=== PATIENT | male | born 1985 | race Caucasian/White ===

== ENCOUNTER 2020-10-11 03:06 | Inpatient (IN) | payer SELFPAY ==
[~2020-10-11] VITALS: Ht 182.9 cm; Wt 60.8 kg
[~2020-10-11 03:06] MED LIST: PENTASA500 MG PO; ULTRAM 50MG50 MG PO
[2020-10-11] MEDS ORDERED: MORPHINE SULFATE INJ 2 MG/ML SYR IV STA (03:16)
[2020-10-11] MEDS ORDERED: ONDANSETRON HCL INJ 2MG/ML 2ML 2 MG/ML VIAL IV STA (03:16)
[2020-10-11 03:27] LABS: BASOPHILS # (AUTO) 0.1 (0.0-0.1); BASOPHILS % 0.5 % (0.0-1.0); EOSINOPHILS % 0.2 % (0.0-6.0); HEMATOCRIT 45.8 % (38.2-49.6); HEMOGLOBIN 15.1 g/dL (14.0-18.0); LYMPHOCYTES # (AUTO) 1.2 (1.0-3.2); LYMPHOCYTES % 11.4 % (18.0-39.1); MONOCYTES # (AUTO) 0.3 (0.2-0.8); MONOCYTES % 3.2 % (4.4-11.3); NEUTROPHILS % 84.4 % (38.7-80.0); PLATELET COUNT 263 x10e3/uL (140-360); RED BLOOD COUNT 5.39 x10e6/uL (4.3-5.7); RED CELL DISTRIBUTION WIDTH 13.2 % (11.7-14.4)
[2020-10-11] MEDS ORDERED: SODIUM CHLORIDE 0.9% 1000ML 1,000 ML ONE (03:29)
[2020-10-11] MEDS ORDERED: SODIUM CHLORIDE 0.9% 1000ML 1,000 ML IV ONE (03:30)
[2020-10-11 03:44] LABS: ALANINE AMINOTRANSFERASE 15 IU/L (0-55); ALBUMIN 4.6 g/dL (3.5-5.0); ALBUMIN/GLOBULIN RATIO 1.4 (0.8-2.0); ALKALINE PHOSPHATASE 68 IU/L (40-150); ANION GAP 14.1 mmol/L (8-16); BLOOD UREA NITROGEN 6 mg/dL (7-26); BUN/CREATININE RATIO 6 (6-25); CALCIUM 9.7 mg/dL (8.4-10.2); CARBON DIOXIDE 25 mmol/L (22-29); CHLORIDE 104 mmol/L (98-107); CREATININE, SERUM 0.99 mg/dL (0.72-1.25); EST GLOMERULAR FILTRATION RATE > 60 ML/MIN (60-); GLUCOSE 107 mg/dL (74-118); POTASSIUM 4.1 mmol/L (3.5-5.1); SODIUM 139 mmol/L (136-145)
[2020-10-11 03:45] LABS: AMYLASE 63 U/L (25-125); LIPASE 17 U/L (8-78)
[2020-10-11 03:47] LABS: CLARITY,URINE CLEAR (CLEAR); COLOR,URINE YELLOW (YELLOW); KETONES,URINE TRACE (NEGATIVE); LEUKOCYTE ESTERASE ,URINE NEGATIVE (NEGATIVE); NITRITE,URINE NEGATIVE (NEGATIVE); PROTEIN,URINE DIPSTICK NEGATIVE (NEGATIVE); URINE UROBILINOGEN 0.2 mg/dL (0.2 - 1)
[2020-10-11 04:10] LABS: BACTERIA,URINE RARE /HPF; EPITHELIAL CELLS,URINE RARE /LPF; RBC,URINE 0-5 /HPF (0-5); WBC,URINE (MAN) 0-5 /HPF (0-5)
[2020-10-11] MEDS ORDERED: SODIUM CHLORIDE 0.9% 50ML 50 ML ONE (05:03)
[2020-10-11] MEDS ORDERED: IOPAMIDOL 370 MG/ML 200 ML INFUS..BTL INJ ONE (05:03)
[2020-10-11] MEDS ORDERED: METHYLPREDNISOLONE SOD SUCC 125 MG/2ML VIAL IV STA (07:09)
[2020-10-11] MEDS ORDERED: ONDANSETRON HCL INJ 2MG/ML 2ML 2 MG/ML VIAL IV PRN (07:15)
[2020-10-11] MEDS ORDERED: MORPHINE SULFATE INJ 4 MG/ML INJ 1ML IV PRN (07:15)
[2020-10-11] MEDS ORDERED: BENZOCAINE/TETRACAINE/BUTAMBEN AERO SPRAY 56 GM CAN TOP ONE (07:15)
[2020-10-11] MEDS: SODIUM CHLORIDE 0.9% 1000ML 1,000 ML IV SCH ×2 (07:22→19:00)
[2020-10-11] MEDS ORDERED: HYDRALAZINE HCL 20 MG/ML VIAL IV PRN (17:15)
[2020-10-11] MEDS ORDERED: ACETAMINOPHEN 650 MG SUPP PR PRN (17:15)
[2020-10-12] MEDS: SODIUM CHLORIDE 0.9% 1000ML 1,000 ML IV SCH ×4 (01:12→16:56)
[2020-10-12 06:24] LABS: BASOPHILS % 0.5 % (0.0-1.0); EOSINOPHILS # (AUTO) 0.1 (0.0-0.4); HEMATOCRIT 38.1 % (38.2-49.6); HEMOGLOBIN 12.6 g/dL (14.0-18.0); LYMPHOCYTES # (AUTO) 2.3 (1.0-3.2); LYMPHOCYTES % 36.1 % (18.0-39.1); MEAN CORPUSCULAR HEMOGLOBIN 28.8 pg (28-32); MEAN CORPUSCULAR HGB CONC 33.1 g/dL (31-35); MEAN CORPUSCULAR VOLUME 87.2 fL (81-99); MONOCYTES # (AUTO) 0.6 (0.2-0.8); MONOCYTES % 10.1 % (4.4-11.3); NEUTROPHILS # (AUTO) 3.3 (2.1-6.9); NEUTROPHILS % 52.1 % (38.7-80.0); PLATELET COUNT 205 x10e3/uL (140-360); RED BLOOD COUNT 4.37 x10e6/uL (4.3-5.7); RED CELL DISTRIBUTION WIDTH 13.4 % (11.7-14.4)
[2020-10-12 06:46] LABS: ALANINE AMINOTRANSFERASE 11 IU/L (0-55); ALBUMIN 3.4 g/dL (3.5-5.0); ALBUMIN/GLOBULIN RATIO 1.4 (0.8-2.0); ALKALINE PHOSPHATASE 51 IU/L (40-150); ANION GAP 9.7 mmol/L (8-16); CALCIUM 8.4 mg/dL (8.4-10.2); CARBON DIOXIDE 25 mmol/L (22-29); CHLORIDE 106 mmol/L (98-107); CREATININE, SERUM 0.76 mg/dL (0.72-1.25); EST GLOMERULAR FILTRATION RATE > 60 ML/MIN (60-); GLUCOSE 87 mg/dL (74-118); POTASSIUM 3.7 mmol/L (3.5-5.1); SODIUM 137 mmol/L (136-145)
[2020-10-12 06:58] LABS: BLOOD UREA NITROGEN 9 mg/dL (7-26); BUN/CREATININE RATIO 12 (6-25)
[2020-10-12 07:10] LABS: PHOSPHORUS 3.4 MG/DL (2.3-4.7)
[2020-10-12] MEDS ORDERED: FAMOTIDINE 20 MG/2 ML VIAL IV SCH (09:00)
[2020-10-12] MEDS ORDERED: HUMIRA PEN40 MG/0.8 (09:56)
[2020-10-12 15:47] VITALS: BP 110/72
[2020-10-12 15:48] VITALS: BP 110/72
[2020-10-12 16:00] VITALS: BP 110/72
[2020-10-12 20:00] VITALS: BP 100/79
[2020-10-12] MEDS ORDERED: ACETAMINOPHEN 325 MG TAB PO PRN (20:00)
[2020-10-12 20:23] VITALS: BP 100/79
[2020-10-12] MEDS: FAMOTIDINE 20 MG/2 ML VIAL IV SCH (20:53)
[2020-10-13] VITALS: BP 100/58
[2020-10-13] MEDS: SODIUM CHLORIDE 0.9% 1000ML 1,000 ML IV SCH ×2 (00:33→08:04)
[2020-10-13 04:00] VITALS: BP 100/64
[2020-10-13] MEDS: FAMOTIDINE 20 MG/2 ML VIAL IV SCH (08:04)
[2020-10-13 08:05] VITALS: BP 106/72
[2020-10-13 08:50] VITALS: BP 106/72
[2020-10-13 08:51] VITALS: BP 142/68
[2020-10-13 12:14] VITALS: BP 106/72
== END 2020-10-13 17:15 | disposition home or self-care (01) | DRG 387 ==
LOC: ER 03:15 → ERHOLD 07:08 → MED/SURG 10-12 16:05
PROVIDERS: ADMIT Internal Medicine; ATTEND Internal Medicine
DX: K50.012 Crohn's disease of small intestine with intestinal obstruction (principal); D72.829 Elevated white blood cell count, unspecified; Z20.822 Contact with and (suspected) exposure to COVID-19; Z90.49 Acquired absence of other specified parts of digestive tract; Z82.49 Family history of ischemic heart disease and other diseases of the circulatory system; Z83.79 Family history of other diseases of the digestive system; Z88.8 Allergy status to other drugs, medicaments and biological substances
CPT/HCPCS: 36415; 74177; 80053; 81001; 82150; 83690; 83735; 84100; 85025; 99284; J2270; J2405; J2930; J7030; Q9967; U0002

== ENCOUNTER 2021-05-23 02:25 | Inpatient (IN) | payer SELFPAY ==
[2021-05-23] VITALS (8 sets, daily range): BP systolic 99–118; BP diastolic 63–79
[~2021-05-23] VITALS: Ht 182.9 cm; Wt 56.7 kg
[~2021-05-23 02:25] MED LIST changes: +HUMIRA PEN40 MG/0.8
[2021-05-23] MEDS ORDERED: MORPHINE SULFATE INJ 4 MG/ML INJ 1ML IV STA (02:32)
[2021-05-23] MEDS ORDERED: ONDANSETRON HCL INJ 2MG/ML 2ML 2 MG/ML VIAL IV STA (02:32)
[2021-05-23] MEDS ORDERED: SODIUM CHLORIDE 0.9% 1000ML 1,000 ML IV ONE (02:45)
[2021-05-23 02:58] LABS: BASOPHILS # (AUTO) 0.1 (0.0-0.1); BASOPHILS % 0.5 % (0.0-1.0); EOSINOPHILS # (AUTO) 0.1 (0.0-0.4); EOSINOPHILS % 0.5 % (0.0-6.0); HEMOGLOBIN 15.5 g/dL (14.0-18.0); LYMPHOCYTES # (AUTO) 1.7 (1.0-3.2); LYMPHOCYTES % 12.6 % (18.0-39.1); MEAN CORPUSCULAR HEMOGLOBIN 28.2 pg (28-32); MEAN CORPUSCULAR VOLUME 85.5 fL (81-99); MONOCYTES # (AUTO) 0.7 (0.2-0.8); MONOCYTES % 5.3 % (4.4-11.3); NEUTROPHILS # (AUTO) 10.7 (2.1-6.9); NEUTROPHILS % 80.6 % (38.7-80.0); PLATELET COUNT 319 x10e3/uL (140-360); RED CELL DISTRIBUTION WIDTH 14.3 % (11.7-14.4)
[2021-05-23 03:16] LABS: AMYLASE 68 U/L (25-125); LIPASE 17 U/L (8-78)
[2021-05-23 03:18] LABS: ALBUMIN 4.5 g/dL (3.5-5.0); ALBUMIN/GLOBULIN RATIO 1.2 (0.8-2.0); ANION GAP 16.7 mmol/L (8-16); CALCIUM 10.4 mg/dL (8.4-10.2); CREATININE, SERUM 1.01 mg/dL (0.72-1.25); POTASSIUM 3.7 mmol/L (3.5-5.1)
[2021-05-23 03:19] LABS: CLARITY,URINE CLEAR (CLEAR); COLOR,URINE AMBER (YELLOW); KETONES,URINE 2+ (NEGATIVE); LEUKOCYTE ESTERASE ,URINE NEGATIVE (NEGATIVE); NITRITE,URINE NEGATIVE (NEGATIVE); PROTEIN,URINE DIPSTICK 1+ (NEGATIVE); URINE UROBILINOGEN 0.2 mg/dL (0.2 - 1)
[2021-05-23 03:21] LABS: AMPHETAMINES SCREEN,URINE NEGATIVE (NEGATIVE); BENZODIAZEPINES SCREEN,URINE NEGATIVE (NEGATIVE); PHENCYCLIDINE SCREEN,URINE NEGATIVE (NEGATIVE)
[2021-05-23 03:27] LABS: BACTERIA,URINE FEW /HPF; EPITHELIAL CELLS,URINE RARE /LPF; MUCUS,URINE FEW (RARE); RBC,URINE 0-5 /HPF (0-5); WBC,URINE (MAN) 0-5 /HPF (0-5)
[2021-05-23] MEDS ORDERED: PIPERACILLIN/TAZOBACTAM 3.375 GM VIAL ONE (04:50)
[2021-05-23] MEDS: PIPERACILLIN/TAZOBACTAM 3.375 GM in SODIUM CHLORIDE 0.9% 50ML 50 ML IV SCH ×4 (04:51→23:55)
[2021-05-23] MEDS ORDERED: IOPAMIDOL 370 MG/ML 200 ML INFUS..BTL INJ ONE (05:20)
[2021-05-23] MEDS ORDERED: SODIUM CHLORIDE 0.9% 50ML 50 ML ONE (05:20)
[2021-05-23] MEDS: SODIUM CHLORIDE 0.9% 1000ML 1,000 ML IV SCH ×3 (05:24→21:40)
[2021-05-23] MEDS: MORPHINE SULFATE INJ 4 MG/ML INJ 1ML IV PRN ×3 (09:23→18:52)
[2021-05-23] MEDS: ONDANSETRON HCL INJ 2MG/ML 2ML 2 MG/ML VIAL IV PRN ×3 (09:23→18:52)
[2021-05-23] MEDS: METOCLOPRAMIDE HCL 10 MG/2ML VIAL IV SCH (23:51)
[2021-05-23] MEDS: METRONIDAZOLE 500MG/NS 100ML 100 ML IV SCH (23:51)
[2021-05-23] MEDS: METHYLPREDNISOLONE SOD SUCC 40 MG/ML VIAL 1ML IV SCH (23:51)
[2021-05-24] VITALS (8 sets, daily range): BP systolic 97–109; BP diastolic 55–74
[2021-05-24] MEDS: MORPHINE SULFATE INJ 4 MG/ML INJ 1ML IV PRN (00:08)
[2021-05-24] MEDS: SODIUM CHLORIDE 0.9% 1000ML 1,000 ML IV SCH ×3 (04:57→20:58)
[2021-05-24 05:03] LABS: BASOPHILS % 0.2 % (0.0-1.0); HEMATOCRIT 40.2 % (38.2-49.6); HEMOGLOBIN 12.8 g/dL (14.0-18.0); LYMPHOCYTES # (AUTO) 0.6 (1.0-3.2); LYMPHOCYTES % 6.9 % (18.0-39.1); MEAN CORPUSCULAR HEMOGLOBIN 27.9 pg (28-32); MEAN CORPUSCULAR HGB CONC 31.8 g/dL (31-35); MEAN CORPUSCULAR VOLUME 87.6 fL (81-99); MONOCYTES # (AUTO) 0.1 (0.2-0.8); MONOCYTES % 1.3 % (4.4-11.3); NEUTROPHILS # (AUTO) 8.2 (2.1-6.9); NEUTROPHILS % 91.3 % (38.7-80.0); PLATELET COUNT 246 x10e3/uL (140-360); RED BLOOD COUNT 4.59 x10e6/uL (4.3-5.7); RED CELL DISTRIBUTION WIDTH 14.6 % (11.7-14.4)
[2021-05-24 05:28] LABS: ALBUMIN 3.4 g/dL (3.5-5.0); ALBUMIN/GLOBULIN RATIO 1.2 (0.8-2.0); ANION GAP 14.9 mmol/L (8-16); CALCIUM 8.6 mg/dL (8.4-10.2); CREATININE, SERUM 0.89 mg/dL (0.72-1.25); POTASSIUM 3.9 mmol/L (3.5-5.1)
[2021-05-24] MEDS: PIPERACILLIN/TAZOBACTAM 3.375 GM in SODIUM CHLORIDE 0.9% 50ML 50 ML IV SCH ×4 (05:42→23:20)
[2021-05-24] MEDS: METHYLPREDNISOLONE SOD SUCC 40 MG/ML VIAL 1ML IV SCH ×4 (06:27→23:20)
[2021-05-24] MEDS: METRONIDAZOLE 500MG/NS 100ML 100 ML IV SCH ×3 (06:27→17:04)
[2021-05-24] MEDS: METOCLOPRAMIDE HCL 10 MG/2ML VIAL IV SCH ×4 (06:27→23:20)
[2021-05-25] VITALS (8 sets, daily range): BP systolic 102–121; BP diastolic 64–78
[2021-05-25] MEDS: METRONIDAZOLE 500MG/NS 100ML 100 ML IV SCH ×4 (00:11→19:09)
[2021-05-25] MEDS: METOCLOPRAMIDE HCL 10 MG/2ML VIAL IV SCH ×4 (06:08→23:36)
[2021-05-25] MEDS: SODIUM CHLORIDE 0.9% 1000ML 1,000 ML IV SCH ×3 (06:08→21:50)
[2021-05-25] MEDS: METHYLPREDNISOLONE SOD SUCC 40 MG/ML VIAL 1ML IV SCH ×4 (06:08→23:36)
[2021-05-25] MEDS: PIPERACILLIN/TAZOBACTAM 3.375 GM in SODIUM CHLORIDE 0.9% 50ML 50 ML IV SCH ×4 (06:08→23:36)
[2021-05-26] MEDS: METRONIDAZOLE 500MG/NS 100ML 100 ML IV SCH ×2 (00:18→06:29)
[2021-05-26] MEDS ORDERED: ACETAMINOPHEN 325 MG/10 ML UDC PO PRN (01:00)
[2021-05-26 01:46] VITALS: BP 125/88
[2021-05-26] MEDS ORDERED: ZOFRAN4 MG PO (04:29)
[2021-05-26] MEDS ORDERED: PANTOPRAZOLE SO40 MG PO (04:29)
[2021-05-26] MEDS ORDERED: PREDNISONE20 MG PO (04:29)
[2021-05-26] MEDS ORDERED: FLAGYL500 MG PO (04:31)
[2021-05-26] MEDS: SODIUM CHLORIDE 0.9% 1000ML 1,000 ML IV SCH (04:40)
[2021-05-26 05:24] VITALS: BP 117/77
[2021-05-26] MEDS: METOCLOPRAMIDE HCL 10 MG/2ML VIAL IV SCH (05:51)
[2021-05-26] MEDS: METHYLPREDNISOLONE SOD SUCC 40 MG/ML VIAL 1ML IV SCH (05:52)
[2021-05-26] MEDS: PIPERACILLIN/TAZOBACTAM 3.375 GM in SODIUM CHLORIDE 0.9% 50ML 50 ML IV SCH (05:52)
[2021-05-26 07:45] VITALS: BP 115/79
[2021-05-26 09:00] VITALS: BP 115/79
== END 2021-05-26 09:23 | disposition home or self-care (01) | DRG 385 ==
LOC: ER 02:33 → ERHOLD 04:54 → MED/SURG2 06:35
PROVIDERS: ADMIT Internal Medicine; ATTEND Internal Medicine
DX: K50.912 Crohn's disease, unspecified, with intestinal obstruction (principal); E43 Unspecified severe protein-calorie malnutrition; Z68.1 Body mass index [BMI] 19.9 or less, adult; K82.8 Other specified diseases of gallbladder; Z88.8 Allergy status to other drugs, medicaments and biological substances; Z90.49 Acquired absence of other specified parts of digestive tract; K50.913 Crohn's disease, unspecified, with fistula; R91.1 Solitary pulmonary nodule; Z20.822 Contact with and (suspected) exposure to COVID-19
CPT/HCPCS: 36415; 74019; 74177; 80053; 80307; 81001; 82150; 83690; 85025; 85651; 86140; 96361; 99284; J2270; J2405; J2543; J2765; J2920; J7030; Q9967; U0002

== ENCOUNTER 2021-11-29 19:32 | Inpatient (IN) | payer SELFPAY ==
[~2021-11-29] VITALS: Ht 182.9 cm; Wt 61.7 kg
[~2021-11-29 19:32] MED LIST changes: +FLAGYL500 MG PO; +PANTOPRAZOLE SO40 MG PO; +PREDNISONE20 MG PO; +ZOFRAN4 MG PO
[2021-11-29] MEDS ORDERED: ONDANSETRON HCL INJ 2MG/ML 2ML 2 MG/ML VIAL IV STA (19:47)
[2021-11-29] MEDS ORDERED: KETOROLAC TROMETHAMINE 30 MG/ML VIAL IV STA (19:47)
[2021-11-29 19:56] LABS: BASOPHILS # (AUTO) 0.1 (0.0-0.1); BASOPHILS % 0.5 % (0.0-1.0); EOSINOPHILS # (AUTO) 0.1 (0.0-0.4); EOSINOPHILS % 0.8 % (0.0-6.0); HEMATOCRIT 46.7 % (38.2-49.6); HEMOGLOBIN 15.6 g/dL (14.0-18.0); LYMPHOCYTES # (AUTO) 1.7 (1.0-3.2); LYMPHOCYTES % 15.2 % (18.0-39.1); MEAN CORPUSCULAR HEMOGLOBIN 28.1 pg (28-32); MEAN CORPUSCULAR HGB CONC 33.4 g/dL (31-35); MONOCYTES # (AUTO) 0.6 (0.2-0.8); MONOCYTES % 5.7 % (4.4-11.3); NEUTROPHILS # (AUTO) 8.5 (2.1-6.9); NEUTROPHILS % 77.5 % (38.7-80.0); PLATELET COUNT 302 x10e3/uL (140-360); RED BLOOD COUNT 5.56 x10e6/uL (4.3-5.7); RED CELL DISTRIBUTION WIDTH 13.4 % (11.7-14.4)
[2021-11-29] MEDS ORDERED: KETOROLAC TROMETHAMINE 60 MG/2 ML VIAL IM ONE (20:00)
[2021-11-29] MEDS ORDERED: SODIUM CHLORIDE 0.9% 1000ML 1,000 ML IV ONE (20:00)
[2021-11-29 20:18] LABS: ALBUMIN 4.3 g/dL (3.5-5.0); ALBUMIN/GLOBULIN RATIO 1.2 (0.8-2.0); AMYLASE 63 U/L (25-125); ANION GAP 13.9 mmol/L (8-16); CALCIUM 9.6 mg/dL (8.4-10.2); CREATININE, SERUM 0.84 mg/dL (0.72-1.25); LIPASE 17 U/L (8-78); POTASSIUM 3.9 mmol/L (3.5-5.1)
[2021-11-29] MEDS ORDERED: Morphine 4mg Syringe 4 MG/ML INJ IV PRN (22:15)
[2021-11-29] MEDS ORDERED: ONDANSETRON HCL INJ 2MG/ML 2ML 2 MG/ML VIAL IV PRN (22:15)
[2021-11-29 22:16] LABS: CLARITY,URINE CLEAR (CLEAR); COLOR,URINE YELLOW (YELLOW); KETONES,URINE 1+ (NEGATIVE); LEUKOCYTE ESTERASE ,URINE NEGATIVE (NEGATIVE); NITRITE,URINE NEGATIVE (NEGATIVE); PROTEIN,URINE DIPSTICK NEGATIVE (NEGATIVE); URINE UROBILINOGEN 0.2 mg/dL (0.2 - 1)
[2021-11-29] MEDS ORDERED: SODIUM CHLORIDE 0.9% 50ML 50 ML ONE ×2 (22:19→23:01)
[2021-11-29] MEDS ORDERED: PIPERACILLIN/TAZOBACTAM 3.375 GM VIAL ONE (22:19)
[2021-11-29 22:21] LABS: BACTERIA,URINE FEW /HPF; EPITHELIAL CELLS,URINE RARE /LPF; WBC,URINE (MAN) 0-5 /HPF (0-5)
[2021-11-29] MEDS ORDERED: PIPERACILLIN/TAZOBACTAM 3.375 GM in SODIUM CHLORIDE 0.9% 50ML 50 ML IV SCH (22:27)
[2021-11-29] MEDS: SODIUM CHLORIDE 0.9% 1000ML 1,000 ML IV SCH (22:30)
[2021-11-29] MEDS ORDERED: BENZOCAINE 20% SPR 60 ML CAN MT ONE (23:00)
[2021-11-29] MEDS ORDERED: IOPAMIDOL 370 MG/ML 100 ML INFUS..BTL INJ ONE (23:01)
[2021-11-29] MEDS ORDERED: BENZOCAINE/TETRACAINE/BUTAMBEN AERO SPRAY 56 GM CAN ONE (23:12)
[2021-11-29 23:20] VITALS: BP 120/75
[2021-11-29 23:37] VITALS: BP 120/75
[2021-11-30] MEDS ORDERED: ACETAMINOPHEN 325 MG TAB PO PRN (00:15)
[2021-11-30] MEDS ORDERED: METHYLPREDNISOLONE SOD SUCC 40 MG/ML VIAL 1ML IV ONE (00:15)
[2021-11-30] MEDS ORDERED: ACETAMINOPHEN 1000 MG/100 ML IV STA (00:24)
[2021-11-30] MEDS: PIPERACILLIN/TAZOBACTAM 3.375 GM in SODIUM CHLORIDE 0.9% 50ML 50 ML IV SCH ×4 (01:04→21:18)
[2021-11-30] MEDS: METRONIDAZOLE 500MG/NS 100ML 100 ML IV SCH ×4 (01:30→18:02)
[2021-11-30 04:51] VITALS: BP 109/70
[2021-11-30 04:59] LABS: BASOPHILS % 0.2 % (0.0-1.0); EOSINOPHILS % 0.1 % (0.0-6.0); HEMATOCRIT 42.6 % (38.2-49.6); HEMOGLOBIN 13.9 g/dL (14.0-18.0); LYMPHOCYTES # (AUTO) 0.8 (1.0-3.2); LYMPHOCYTES % 7.4 % (18.0-39.1); MEAN CORPUSCULAR HEMOGLOBIN 27.7 pg (28-32); MEAN CORPUSCULAR HGB CONC 32.6 g/dL (31-35); MEAN CORPUSCULAR VOLUME 84.9 fL (81-99); MONOCYTES # (AUTO) 0.1 (0.2-0.8); MONOCYTES % 0.8 % (4.4-11.3); NEUTROPHILS # (AUTO) 10.3 (2.1-6.9); NEUTROPHILS % 91.1 % (38.7-80.0); PLATELET COUNT 260 x10e3/uL (140-360); RED BLOOD COUNT 5.02 x10e6/uL (4.3-5.7); RED CELL DISTRIBUTION WIDTH 13.5 % (11.7-14.4)
[2021-11-30 05:17] LABS: ALBUMIN 3.7 g/dL (3.5-5.0); ALBUMIN/GLOBULIN RATIO 1.2 (0.8-2.0); ANION GAP 10.9 mmol/L (8-16); CALCIUM 8.7 mg/dL (8.4-10.2); CREATININE, SERUM 0.94 mg/dL (0.72-1.25); POTASSIUM 3.9 mmol/L (3.5-5.1)
[2021-11-30] MEDS ORDERED: PIPERACILLIN/TAZOBACTAM 3.375 GM in SODIUM CHLORIDE 0.9% 50ML 50 ML IV SCH (06:00)
[2021-11-30] MEDS: METHYLPREDNISOLONE SOD SUCC 40 MG/ML VIAL 1ML IV SCH ×3 (06:06→18:02)
[2021-11-30 07:56] VITALS: BP 95/64
[2021-11-30 08:01] VITALS: BP 95/64
[2021-11-30] MEDS ORDERED: CHLORASEPTIC SPRAY 177 ML BTL MM PRN (11:00)
[2021-11-30 12:20] VITALS: BP_SYST 100; BP_SYST 134; BP_DIAS 106; BP_DIAS 65
[2021-11-30] MEDS: SODIUM CHLORIDE 0.9% 1000ML 1,000 ML IV SCH ×3 (13:05→21:19)
[2021-11-30] MEDS: ACETAMINOPHEN 1000 MG/100 ML IV SCH ×2 (13:05→21:18)
[2021-11-30 15:20] VITALS: BP 101/56
[2021-11-30] MEDS ORDERED: ENOXAPARIN SOD INJ 40 MG/0.4 ML SYR SC SCH (17:00)
[2021-11-30 20:32] VITALS: BP 97/68
[2021-12-01] VITALS (8 sets, daily range): BP systolic 100–108; BP diastolic 58–68
[2021-12-01] MEDS: METHYLPREDNISOLONE SOD SUCC 40 MG/ML VIAL 1ML IV SCH ×5 (00:04→23:50)
[2021-12-01] MEDS: METRONIDAZOLE 500MG/NS 100ML 100 ML IV SCH ×5 (00:04→23:50)
[2021-12-01] MEDS: Pantoprazole IV 40 MG in SODIUM CHLORIDE 0.9% 50ML 50 ML IV SCH ×5 (01:52→21:40)
[2021-12-01 05:00] LABS: BASOPHILS % 0.1 % (0.0-1.0); HEMATOCRIT 37.4 % (38.2-49.6); HEMOGLOBIN 12.3 g/dL (14.0-18.0); LYMPHOCYTES # (AUTO) 0.9 (1.0-3.2); LYMPHOCYTES % 12.3 % (18.0-39.1); MEAN CORPUSCULAR HEMOGLOBIN 27.9 pg (28-32); MEAN CORPUSCULAR HGB CONC 32.9 g/dL (31-35); MEAN CORPUSCULAR VOLUME 84.8 fL (81-99); MONOCYTES # (AUTO) 0.3 (0.2-0.8); MONOCYTES % 3.6 % (4.4-11.3); NEUTROPHILS % 83.7 % (38.7-80.0); PLATELET COUNT 245 x10e3/uL (140-360); RED BLOOD COUNT 4.41 x10e6/uL (4.3-5.7); RED CELL DISTRIBUTION WIDTH 13.5 % (11.7-14.4)
[2021-12-01 05:19] LABS: ANION GAP 11.9 mmol/L (8-16); CALCIUM 8.2 mg/dL (8.4-10.2); CREATININE, SERUM 0.77 mg/dL (0.72-1.25); MAGNESIUM 2.3 MG/DL (1.3-2.1); POTASSIUM 3.9 mmol/L (3.5-5.1)
[2021-12-01] MEDS: PIPERACILLIN/TAZOBACTAM 3.375 GM in SODIUM CHLORIDE 0.9% 50ML 50 ML IV SCH ×3 (05:28→21:41)
[2021-12-01] MEDS: ACETAMINOPHEN 1000 MG/100 ML IV SCH (05:57)
[2021-12-01] MEDS: SODIUM CHLORIDE 0.9% 1000ML 1,000 ML IV SCH ×3 (06:30→21:41)
[2021-12-01 09:47] LABS: % IRON SATURATION 18 % (15-50); IRON 66 ug/dL (65-175); TOTAL IRON BINDING CAPACITY 374 ug/dL (261-478); TRANSFERRIN 267 mg/dL (174-364)
[2021-12-02] VITALS (10 sets, daily range): BP systolic 93–112; BP diastolic 61–74
[2021-12-02] MEDS ORDERED: CYANOCOBALAMIN INJ 1,000 MCG/ML VIAL IM ONE (01:00)
[2021-12-02] MEDS ORDERED: FOLIC ACID 1 MG TAB PO ONE (01:00)
[2021-12-02] MEDS: Pantoprazole IV 40 MG in SODIUM CHLORIDE 0.9% 50ML 50 ML IV SCH ×5 (01:30→22:40)
[2021-12-02] MEDS: PIPERACILLIN/TAZOBACTAM 3.375 GM in SODIUM CHLORIDE 0.9% 50ML 50 ML IV SCH ×3 (05:49→22:40)
[2021-12-02] MEDS: SODIUM CHLORIDE 0.9% 1000ML 1,000 ML IV SCH (05:49)
[2021-12-02] MEDS: METHYLPREDNISOLONE SOD SUCC 40 MG/ML VIAL 1ML IV SCH ×4 (05:49→23:27)
[2021-12-02] MEDS: METRONIDAZOLE 500MG/NS 100ML 100 ML IV SCH ×4 (06:00→23:27)
[2021-12-02 08:39] LABS: BASOPHILS % 0.1 % (0.0-1.0); HEMATOCRIT 39.2 % (38.2-49.6); HEMOGLOBIN 12.9 g/dL (14.0-18.0); LYMPHOCYTES # (AUTO) 0.8 (1.0-3.2); LYMPHOCYTES % 6.8 % (18.0-39.1); MEAN CORPUSCULAR HEMOGLOBIN 28.4 pg (28-32); MEAN CORPUSCULAR HGB CONC 32.9 g/dL (31-35); MEAN CORPUSCULAR VOLUME 86.3 fL (81-99); MONOCYTES # (AUTO) 0.2 (0.2-0.8); MONOCYTES % 1.5 % (4.4-11.3); NEUTROPHILS # (AUTO) 10.2 (2.1-6.9); NEUTROPHILS % 89.8 % (38.7-80.0); PLATELET COUNT 248 x10e3/uL (140-360); RED BLOOD COUNT 4.54 x10e6/uL (4.3-5.7); RED CELL DISTRIBUTION WIDTH 13.6 % (11.7-14.4)
[2021-12-02] MEDS: CYANOCOBALAMIN INJ 1,000 MCG/ML VIAL IM SCH (09:00)
[2021-12-02] MEDS: FOLIC ACID 1 MG TAB PO SCH (09:00)
[2021-12-02 09:15] LABS: ALBUMIN 3.4 g/dL (3.5-5.0); ALBUMIN/GLOBULIN RATIO 1.2 (0.8-2.0); CALCIUM 8.4 mg/dL (8.4-10.2); CREATININE, SERUM 0.85 mg/dL (0.72-1.25)
[2021-12-02] MEDS ORDERED: CYANOCOBALAMIN INJ 1,000 MCG/ML VIAL IM SCH (13:00)
[2021-12-03] VITALS: BP 109/79
[2021-12-03] MEDS: Pantoprazole IV 40 MG in SODIUM CHLORIDE 0.9% 50ML 50 ML IV SCH ×2 (03:18→05:38)
[2021-12-03 04:00] VITALS: BP 102/67
[2021-12-03] MEDS: METHYLPREDNISOLONE SOD SUCC 40 MG/ML VIAL 1ML IV SCH ×2 (05:38→11:05)
[2021-12-03] MEDS: PIPERACILLIN/TAZOBACTAM 3.375 GM in SODIUM CHLORIDE 0.9% 50ML 50 ML IV SCH (05:38)
[2021-12-03] MEDS: METRONIDAZOLE 500MG/NS 100ML 100 ML IV SCH ×2 (05:38→11:05)
[2021-12-03 06:32] LABS: HEMATOCRIT 37.4 % (38.2-49.6); HEMOGLOBIN 12.2 g/dL (14.0-18.0); LYMPHOCYTES # (AUTO) 1.1 (1.0-3.2); LYMPHOCYTES % 14.3 % (18.0-39.1); MEAN CORPUSCULAR HEMOGLOBIN 27.9 pg (28-32); MEAN CORPUSCULAR HGB CONC 32.6 g/dL (31-35); MEAN CORPUSCULAR VOLUME 85.6 fL (81-99); MONOCYTES # (AUTO) 0.4 (0.2-0.8); MONOCYTES % 4.6 % (4.4-11.3); NEUTROPHILS % 80.3 % (38.7-80.0); PLATELET COUNT 225 x10e3/uL (140-360); RED BLOOD COUNT 4.37 x10e6/uL (4.3-5.7); RED CELL DISTRIBUTION WIDTH 13.4 % (11.7-14.4)
[2021-12-03 06:51] LABS: ALBUMIN 3.2 g/dL (3.5-5.0); ALBUMIN/GLOBULIN RATIO 1.2 (0.8-2.0); ANION GAP 9.9 mmol/L (8-16); CALCIUM 8.3 mg/dL (8.4-10.2); CREATININE, SERUM 0.76 mg/dL (0.72-1.25); POTASSIUM 3.9 mmol/L (3.5-5.1)
[2021-12-03 08:40] VITALS: BP 108/73
[2021-12-03] MEDS: CYANOCOBALAMIN INJ 1,000 MCG/ML VIAL IM SCH (09:32)
[2021-12-03] MEDS: FOLIC ACID 1 MG TAB PO SCH (09:32)
[2021-12-03] MEDS ORDERED: PREDNISONE5 MG/5 ML PO (11:58)
[2021-12-03] MEDS ORDERED: FOLIC ACID0.4 MG PO (11:59)
[2021-12-03] MEDS ORDERED: B12 ACTIVE1000 MCG PO (12:01)
[2021-12-03] MEDS ORDERED: PREDNISONE10 MG PO (12:03)
== END 2021-12-03 12:38 | disposition home or self-care (01) | DRG 386 ==
LOC: ER 20:07 → ERHOLD 22:14 → MED/SURG2 23:23
PROVIDERS: ADMIT Internal Medicine; ATTEND Internal Medicine
PROC: 0D9670Z Drainage of Stomach with Drainage Device, Via Natural or Artificial Opening (ICD-10-PCS; principal; 2021-11-29)
DX: K50.012 Crohn's disease of small intestine with intestinal obstruction (principal); Z68.1 Body mass index [BMI] 19.9 or less, adult; K63.89 Other specified diseases of intestine; E53.8 Deficiency of other specified B group vitamins; Z90.49 Acquired absence of other specified parts of digestive tract; Z91.048 Other nonmedicinal substance allergy status; Z20.822 Contact with and (suspected) exposure to COVID-19; R63.6 Underweight
CPT/HCPCS: 36415; 74018; 74019; 74177; 80048; 80053; 81001; 82150; 82607; 82728; 82746; 83540; 83690; 83735; 83993; 84466; 85025; 86141; 99284; J1650; J1885; J2270; J2405; J2543; J2920; J3420; J7030; Q9967; U0002